=== PATIENT | female | born 1955 | race African-American/Black ===

== ENCOUNTER 2016-10-10 15:26 | Emergency (ER) | payer MEDICARE ==
[~2016-10-10] VITALS: Ht 157.5 cm; Wt 88.5 kg
[~2016-10-10 15:26] MED LIST: ASCO500C PO; ASPI-482 PO; CHOL20004 PO; CYCL10TA2 PO; DOCU-27 PO; GABA-586 PO; HYDR-2666 PO; HYDR12.58 PO; INSU100V8 SQ; LACT1CAP8 PO; LISI40TA PO; LOVA40TA2 PO; MELO-150 PO; METF10002 PO; VENTOLIN HFA8 GM IH; VITA100T7 PO
[2016-10-10 15:49] LABS: BASO % 1 % (0-3); EOS % 1 % (0-3); HEMATOCRIT 38.4 % (36.0-47.0); HEMOGLOBIN 12.4 g/dL (12.0-15.5); LYMPH # 3.1 x10^3/uL (1.0-4.8); LYMPH % 46 % (24-48); MEAN CORPUSCULAR HEMOGLOBIN 28 pg (25-35); MEAN CORPUSCULAR HGB CONC 32 g/dL (31-37); MEAN CORPUSCULAR VOLUME 88 fL (79-100); MONO % 8 % (0-9); NEUT % 44 % (31-73); PLATELET COUNT 232 x10^3/uL (140-400); RED BLOOD COUNT 4.36 x10^6/uL (3.50-5.40); RED CELL DISTRIBUTION WIDTH 14.1 % (11.5-14.5); WHITE BLOOD COUNT 6.8 x10^3/uL (4.0-11.0)
[2016-10-10 15:57] LABS: CALCIUM 9.6 mg/dL (8.5-10.1); POTASSIUM 4.4 mmol/L (3.5-5.1)
[2016-10-10] MEDS ORDERED: LIDOCAINE 4% KIT 4 ML SOLUTION. TP ONE (16:00)
[2016-10-10] MEDS ORDERED: IPRATRPIUM/ALBUTEROL 0.5/2.5MG 3 ML NEBU. NEB ONE (16:00)
[2016-10-10 16:20] LABS: OBC FLU VALID
--- NOTE | 2016-10-10 16:38 | RAD ---
Indication cough for 2 weeks. History of hypertension. Diabetic. A single view of the chest was obtained and is compared to an examination September 09, 2009. The heart, pulmonary vessels and mediastinum appear normal. The lungs are clear. Is no pleural fluid or pneumothorax. There has not been a a significant change compared to the previous exam. IMPRESSION: No acute finding apparent in the chest
[2016-10-10] MEDS ORDERED: PROAIR HFA8.5 GM INH (16:49)
[2016-10-10] MEDS ORDERED: PROM118S3 PO (16:49)
[2016-10-10 16:50] VITALS: BP 163/72
--- NOTE | 2016-10-10 16:50 | PHYS DOC ---
Past Medical History Past Medical History: Diabetes-Type II, Hypertension Additional Past Medical Histor: back problems Past Surgical History: Hysterectomy, Knee Replacement Additional Past Surgical Histo: bladder sling, back surgery Alcohol Use: None Drug Use: None Adult General Chief Complaint Chief Complaint: COUGH HPI HPI 61-year-old female who's had ongoing cough and substernal chest pressure made worse with deep breathing and cough for the last several weeks. Patient has been on multiple antibiotics and is currently finishing a course of doxycycline for her symptoms. She has not been taking as her symptoms. She denies any smoking history. She does have history of diabetes but denies any severe heart disease. Her last cardiac workup was approximately 2 years ago for knee surgery clearance. Patient is speaking in complete sentences in no acute respiratory distress upon my analysis. She is saturating near 100% on room air. She rates her pain a 6/10 on the pain scale. Review of Systems Review of Systems Constitutional: Denies fever or chills [] Eyes: Denies change in visual acuity, redness, or eye pain [] HENT: Has nasal congestion, has sore throat [] Respiratory: Has cough, has shortness of breath [] Cardiovascular: No additional information not addressed in HPI [] GI: Denies abdominal pain, nausea, vomiting, bloody stools or diarrhea [] : Denies dysuria or hematuria [] Musculoskeletal: Denies back pain or joint pain [] Integument: Denies rash or skin lesions [] Neurologic: Denies headache, focal weakness or sensory changes [] Endocrine: Denies polyuria or polydipsia [] Current Medications Current Medications Current Medications Medications (Trade) Dose Ordered Sig/Shweta Start Time Stop Time Status Last Admin Dose Admin Albuterol/ Ipratropium (Duoneb) 3 ml 1X ONCE 10/10/16 16:00 10/10/16 16:01 DC 10/10/16 16:07 3 ML Lidocaine HCl (Lta Kit) 4 ml 1X ONCE 10/10/16 16:00 10/10/16 16:02 DC 10/10/16 16:07 4 ML Allergies Allergies Allergies Coded Allergies Type Severity Reaction Last Updated Verified Sulfa (Sulfonamide Antibiotics) Allergy Intermediate Rash 07/13/16 Yes Physical Exam Physical Exam Constitutional: Well developed, well nourished, no acute distress, non-toxic appearance. [] HENT: Normocephalic, atraumatic, bilateral external ears normal, oropharynx moist, no oral exudates, nose normal. [] Eyes: PERRLA, EOMI, conjunctiva normal, no discharge. [] Neck: Normal range of motion, no tenderness, supple, no stridor. [] Cardiovascular:Heart rate regular rhythm, no murmur [] Lungs & Thorax: Slight expiratory wheezing bilaterally with no acute respiratory distress noted [] Abdomen: Bowel sounds normal, soft, no tenderness, no masses, no pulsatile masses. [] Skin: Warm, dry, no erythema, no rash. [] Back: No tenderness, no CVA tenderness. [] Extremities: No tenderness, no cyanosis, no clubbing, ROM intact, no edema. [] Neurologic: Alert and oriented X 3, normal motor function, normal sensory function, no focal deficits noted. [] Psychologic: Affect normal, judgement normal, mood normal. [] Current Patient Data Vital Signs Vital Signs Date Time Temp Pulse Resp B/P Pulse Ox O2 Delivery O2 Flow Rate FiO2 10/10/16 16:50 86 19 163/72 100 Room Air 10/10/16 15:26 98.0 98.0 Lab Values Laboratory Tests Test 10/10/16 15:32 10/10/16 15:40 Influenza Type A Antigen Negative (NEGATIVE) Influenza Type B Antigen Negative (NEGATIVE) White Blood Count 6.8x10^3/uL (4.0-11.0) Red Blood Count 4.36x10^6/uL (3.50-5.40) Hemoglobin 12.4g/dL (12.0-15.5) Hematocrit 38.4% (36.0-47.0) Mean Corpuscular Volume 88fL (79-100) Mean Corpuscular Hemoglobin 28pg (25-35) Mean Corpuscular Hemoglobin Concent 32g/dL (31-37) Red Cell Distribution Width 14.1% (11.5-14.5) Platelet Count 232x10^3/uL (140-400) Neutrophils (%) (Auto) 44% (31-73) Lymphocytes (%) (Auto) 46% (24-48) Monocytes (%) (Auto) 8% (0-9) Eosinophils (%) (Auto) 1% (0-3) Basophils (%) (Auto) 1% (0-3) Neutrophils # (Auto) 3.0x10^3uL (1.8-7.7) Lymphocytes # (Auto) 3.1x10^3/uL (1.0-4.8) Monocytes # (Auto) 0.6x10^3/uL (0.0-1.1) Eosinophils # (Auto) 0.1x10^3/uL (0.0-0.7) Basophils # (Auto) 0.0x10^3/uL (0.0-0.2) Sodium Level 141mmol/L (136-145) Potassium Level 4.4mmol/L (3.5-5.1) Chloride Level 101mmol/L (98-107) Carbon Dioxide Level 28mmol/L (21-32) Anion Gap 12 (6-14) Blood Urea Nitrogen 23mg/dL (7-20) H Creatinine 1.0mg/dL (0.6-1.0) Estimated GFR (Cockcroft-Gault) 68.0 Glucose Level 119mg/dL (70-99) H Calcium Level 9.6mg/dL (8.5-10.1) Laboratory Tests 10/10/16 15:40 Laboratory Tests 10/10/16 15:40 EKG EKG EKG as interpreted by me shows sinus rhythm rate of 92 bpm. There is a leftward axis. Intervals are normal. There is no ectopy. There are no acute signs of ischemia. Radiology/Procedures Radiology/Procedures One view of the chest as interpreted by me does not reveal an acute cardiopulmonary process. Course & Med Decision Making Course & Med Decision Making Pertinent Labs and Imaging studies reviewed. (See chart for details) This 61-year-old female came in with significant cough and bronchospasm. Patient was given a DuoNeb treatment as well as a nebulized lidocaine treatment. Upon my reassessment patient feels much improved. Her chest film, EKG , laboratory workup including a set of cardiac enzymes was completely negative and unrevealing. I counseled the patient that she is to continue to finish her antibiotic course and that she is to follow-up with her primary care doctor next several days and to continue bronchodilators which I will prescribe as well as cough suppressant which I will also prescribe. She was discharged without incident feeling improved. Dragon Disclaimer Dragon Disclaimer This electronic medical record was generated, in whole or in part, using a voice recognition dictation system. Departure Departure Impression: Primary Impression: Cough Additional Impression: Bronchospasm Disposition: 01 HOME, SELF-CARE Condition: IMPROVED Referrals: KINZA CUTLER MD (PCP) Patient Instructions: Bronchospasm, Adult, Cough, Adult, [id number] Additional Instructions: Please use your inhaler as needed for your symptoms every 4-6 hours. Take your cough medication as prescribed. Follow up with your primary doctor in the next 2 -3 for your symptoms. Return to the ER if you develop any worsening of your symptoms. Scripts Promethazine/Phenyleph/Codeine (Promethazine Vc-Codeine Syrup)473 Ml Syrup5 Ml PO Q6HRS #120 ML Prov:DAVID GARCIA DO 10/10/16 Albuterol Sulfate (Proair Hfa Inhaler)8.5 Gm Hfa.[id number].[email or web address] Puff INH PRN Q6HRS PRN SHORTNESS OF BREATH #1 INHALER Ref 0 Prov:DAVID GARCIA DO 10/10/16 Problem Qualifiers DAVID GARCIA DO Oct 10, 2016 16:50
--- NOTE | 2016-10-11 11:30 | EKG ---
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
== END 2016-10-10 16:57 | disposition home or self-care (01) ==
LOC: ER 15:26
DX: J98.01 Acute bronchospasm (principal); R07.1 Chest pain on breathing; I10 Essential (primary) hypertension; E11.9 Type 2 diabetes mellitus without complications; Z88.2 Allergy status to sulfonamides
CPT/HCPCS: 36415; 71010; 80048; 85027; 87804; 93005; 94640; 99285; J7620

== ENCOUNTER 2017-11-18 15:27 | Emergency (ER) | payer OTHER, MEDICARE ==
[2017-11-18 15:50] LABS: POC GLUCOSE 182 mg/dL (70-99)
== END 2017-11-18 16:34 | disposition home or self-care (01) ==
LOC: ER 15:27
DX: I10 Essential (primary) hypertension (principal); E11.9 Type 2 diabetes mellitus without complications; Z79.4 Long term (current) use of insulin; Z88.2 Allergy status to sulfonamides
CPT/HCPCS: 82962; 99284

== ENCOUNTER → 2020-10-14 | Outpatient (CLI) | payer MEDICARE ==
[2017-11-18 16:00] VITALS: BP 139/92
[~2020-10-14] MED LIST changes: +ALBU2.5V8 INH; -CHOL20004 PO; +CHOL200074 PO; +DOCU-109 PO; -DOCU-27 PO; -GABA-586 PO; +GABA300C18 PO; -HYDR-2666 PO; +HYDR-2761 PO; +INSU100V2 SQ; +LISI-130 PO; -LISI40TA PO; -MELO-150 PO; +MELO15TA23 PO; -METF10002 PO; +METF10007 PO; +PROM118S3 PO
== END ==
LOC: LAB 13:43
PROVIDERS: ATTEND Internal Medicine Gastroenterology
DX: Z01.812 Encounter for preprocedural laboratory examination (principal); R13.10 Dysphagia, unspecified; Z20.822 Contact with and (suspected) exposure to COVID-19
CPT/HCPCS: U0003

== ENCOUNTER → 2020-10-16 | Day surgery (SDC) | payer MEDICARE ==
[~2020-10-16] MED LIST changes: +HYDROmorphone 2 MG/ML VIAL IVP PRN; +IV RINGERS,LACTATED 1000ML 1,000 ML IV SCH; +LIDOCAINE 2% PF 5 ML VIAL. ONE; +MORPHINE SULFATE 2 MG/ML VIAL. IVP PRN; +PROCHLORPERAZINE 10 MG/2 ML VIAL. IVP PRN; +PROPOFOL 10 MG/ML (20ML) VIAL. IV ONE; +fentaNYL PF VIAL 100 MCG/2 ML VIAL IVP PRN
[2020-10-16 09:53] VITALS: BP 122/76
== END | disposition home or self-care (01) ==
LOC: ENDOS 07:51
PROVIDERS: ATTEND Internal Medicine Gastroenterology
DX: R13.10 Dysphagia, unspecified (principal); K31.89 Other diseases of stomach and duodenum; E78.00 Pure hypercholesterolemia, unspecified; I10 Essential (primary) hypertension; K21.9 Gastro-esophageal reflux disease without esophagitis; E66.9 Obesity, unspecified; E11.9 Type 2 diabetes mellitus without complications; M19.90 Unspecified osteoarthritis, unspecified site; Z87.440 Personal history of urinary (tract) infections; Z90.710 Acquired absence of both cervix and uterus; Z98.890 Other specified postprocedural states; Z79.899 Other long term (current) drug therapy; Z88.2 Allergy status to sulfonamides
CPT/HCPCS: 43450; 82962; J2704